=== PATIENT | female | born 1960 | race Caucasian/White ===

== ENCOUNTER 2021-12-31 00:36 | Day surgery (SDC) | payer OTHER, SELFPAY ==
[2021-11-22 13:01] VITALS: BMI 21.0
--- NOTE | 2021-12-18 13:57 | PC.NURSE ---
Pt denies any changes in medical history or medications since last pre assessment phone call. no new questions. new date and time of procedure verified with pt.
--- NOTE | 2021-12-30 17:44 | PM.HPGS ---
History of Present Illness History of Present Illness Consent: Risks, benefits, and alternatives have been discussed and questions answered. Patient agrees to proceed with procedure. Chief complaint: family hx of colon ca Narrative: Luz Marina Fields is a 61 year old female referred for colon cancer screening. Her father had precancerous polyps. Her paternal aunt and grandfather both had colon cancer Review of Systems Review of Systems: All systems reviewed & are unremarkable except as noted in HPI and below PMFSH Past Medical History Medical History Hyperlipidemia IBS (irritable bowel syndrome) Surgical History Surgical History History of hysterectomy Social History Social History Smoking status: Former smoker Alcohol intake: current Alcohol use details: 1-2 drinks per month Living arrangements: with family Spiritual care concerns: No Meds Home Medications and Allergies Home Medications Medication Instructions Recorded Confirmed Type omeprazole 40 mg capsule,delayed 40 mg PO DAILY #90 cap 06/29/21 11/22/21 Rx release eletriptan 40 mg tablet 40 mg PO ONCE PRN 08/21/21 11/22/21 History topiramate 25 mg tablet See Rx Instructions .ROUTE 08/21/21 11/22/21 History .COMPLEX tablet galcanezumab-gnlm 120 mg/mL 120 mg SUBCUT MONTHLY #1 ml 09/18/21 11/22/21 Rx subcutaneous pen injector cyclosporine [Restasis] 1 drp OPHTHALMIC (EYE) BID 11/22/21 11/22/21 History estradiol 1 mg PO DAILY 11/22/21 11/22/21 History fluticasone propionate [Flonase] 50 mcg INTRANASAL DAILY 11/22/21 11/22/21 History loperamide 1 mg PO DAILY 11/22/21 11/22/21 History phenylephrine HCl [Sudafed PE] 10 mg PO DAILY 11/22/21 11/22/21 History rosuvastatin 10 mg PO DAILY 11/22/21 11/22/21 History Allergies Allergy/AdvReac Type Severity Reaction Status Date / Time sulfamethizole Allergy Unknown Unknown Verified 12/31/21 09:17 sulfanilamide Allergy Unknown Unknown Verified 12/31/21 09:17 trimethoprim Allergy Unknown Unknown Verified 12/31/21 09:17 erythromycin base AdvReac Severe N/V Verified 12/31/21 09:17 sulfamethoxazole AdvReac Severe N/V Verified 12/31/21 09:17 Exam Const: General: alert Orientation/consciousness: patient oriented x3 Resp: Auscultation: clear to auscultation bilaterally Cardio: Rhythm: regular rhythm GI: GI Palp: Yes Soft to palpation and No Tenderness to palpation present (GI) Neuro: General: patient oriented x3 Assessment and Plan Assessment and plan (1) Colon cancer screening: Code(s): Z12.11 - Encounter for screening for malignant neoplasm of colon Status: Acute Assessment and Plan: Colonoscopy with possible biopsy or polypectomy or cautery or injection of substances.
[2021-12-31 09:19] VITALS: BP 115/76; PULSE 78; RESP 18; TEMP 36.8; O2SAT 98
--- NOTE | 2021-12-31 09:26 | P.PNAN_ITS ---
Anes - Initial Pre Proc Eval Procedure: Operation Date: 12/31/21 10:00 Proposed Procedures p Screening Colonoscopy - Aniceto Hunter MD Date/Time: 12/31/21 09:26 Surgeon: Aniceto Hunter MD Pre Op Diagnosis: family hx of colon ca Patient Data Age: 61 Gender: F Height: 1.6 m Weight: 54.8 kg Last Vital Signs Temp 36.8 C 12/31/21 09:19 Pulse 78 12/31/21 09:19 Resp 18 12/31/21 09:19 BP 115/76 12/31/21 09:19 Pulse Ox 98 12/31/21 09:19 Allergies Allergy/AdvReac Type Severity Reaction Status Date / Time sulfamethizole Allergy Unknown Unknown Verified 12/31/21 09:17 sulfanilamide Allergy Unknown Unknown Verified 12/31/21 09:17 trimethoprim Allergy Unknown Unknown Verified 12/31/21 09:17 erythromycin base AdvReac Severe N/V Verified 12/31/21 09:17 sulfamethoxazole AdvReac Severe N/V Verified 12/31/21 09:17 Home Medications Medication Instructions Recorded Confirmed Type omeprazole 40 mg capsule,delayed 40 mg PO DAILY #90 cap 06/29/21 11/22/21 Rx release eletriptan 40 mg tablet 40 mg PO ONCE PRN 08/21/21 11/22/21 History topiramate 25 mg tablet See Rx Instructions .ROUTE 08/21/21 11/22/21 History .COMPLEX tablet galcanezumab-gnlm 120 mg/mL 120 mg SUBCUT MONTHLY #1 ml 09/18/21 11/22/21 Rx subcutaneous pen injector cyclosporine [Restasis] 1 drp OPHTHALMIC (EYE) BID 11/22/21 11/22/21 History estradiol 1 mg PO DAILY 11/22/21 11/22/21 History fluticasone propionate [Flonase] 50 mcg INTRANASAL DAILY 11/22/21 11/22/21 History loperamide 1 mg PO DAILY 11/22/21 11/22/21 History phenylephrine HCl [Sudafed PE] 10 mg PO DAILY 11/22/21 11/22/21 History rosuvastatin 10 mg PO DAILY 11/22/21 11/22/21 History Patient hx anesthesia problems: none Family hx anesthesia problems: none Results Review: All pre-operative results and documents have been reviewed as part of the pre-operative evaluation. [facility] Past Medical History Medical History Hyperlipidemia IBS (irritable bowel syndrome) Surgical History Surgical History History of hysterectomy Social History Social History Smoking status: Former smoker Alcohol intake: current Alcohol use details: 1-2 drinks per month Living arrangements: with family Spiritual care concerns: No Anes - Eval Final PreProcedure Day of Procedure 12/31/21 09:26 Patient weight: normal Heart: regular rate and rhythm Lungs: clear to auscultation and normal air movement Airway: Mallampati scale class II Neurological: alert and oriented Last oral intake: >/= 8 hours ASA classification: II Emergent: no Anesthetic plan: proceed Anesthesia type and monitoring: general GIVS and standard monitoring Results Review: All pre-operative results and documents have been reviewed as part of the pre-operative evaluation. Informed Consent: The patient's anesthetic plan and its attendant risks and benefits were discussed with the patient/family/POA. Questions were solicited and answers provided to the satisfaction of the patient/family/POA.
[2021-12-31] MEDS: LACTATED RINGERS 1,000 ML 150 ML IV CONT (09:27)
[2021-12-31 10:15] VITALS: BP 91/67; PULSE 87; RESP 18; O2SAT 98
[2021-12-31 10:25] VITALS: BP 118/80; PULSE 69; RESP 18; O2SAT 91
[2021-12-31 10:34] VITALS: BP 108/72; PULSE 63; RESP 18; O2SAT 100
== END 2021-12-31 10:43 | disposition home or self-care (01) ==
PROVIDERS: PCP Internal Medicine; Visit Provider Internal Medicine Gastroenterology
PROC: 0DJD8ZZ Inspection of Lower Intestinal Tract, Via Natural or Artificial Opening Endoscopic (ICD-10-PCS; CPT 45378; principal; 2021-12-31 10:00)
DX: Z12.11 Encounter for screening for malignant neoplasm of colon (principal); K64.8 Other hemorrhoids; Z80.0 Family history of malignant neoplasm of digestive organs; K58.9 Irritable bowel syndrome, unspecified; E78.5 Hyperlipidemia, unspecified; Z87.891 Personal history of nicotine dependence
CPT/HCPCS: 45378; J2704; J7120

== ENCOUNTER 2022-08-01 07:44 | Inpatient (IN) | payer OTHER, SELFPAY ==
[2022-08-01] VITALS (12 sets, daily range): BP systolic 117–155; BP diastolic 71–98; PULSE 57–79; RESP 14–18; TEMP 36.7–36.8; O2SAT 97–100
--- NOTE | ~2022-08-01 | XR_ITS ---
EXAMINATION: XR sm bowel follow through DATE: 08/02/2022 12:29 INDICATION: Small bowel obstruction. TECHNIQUE: Oral contrast was administered, and a time course of radiographs of the abdomen was obtain ed. Fluoroscopy of the small bowel was not performed. Fluoroscopy exposure time was 0 minutes. The to carmella number of images was 2. COMPARISON: CT abdomen and pelvis 08/01/2022 FINDINGS: The nasogastric tube tip is in the stomach. There is no abnormal mass or stricture. There are no dila barber loops of bowel. Transit time from the stomach to proximal colon was approximately 1 hour. IMPRESSION: 1. Normal small bowel series. Reviewed, dictated and finalized at location A.
--- NOTE | ~2022-08-01 | XR_ITS ---
EXAMINATION: XR abdomen NG/feed tube insert DATE: 08/01/2022 13:06 INDICATION: Nasogastric tube placement. TECHNIQUE: An upright view of the abdomen was obtained. COMPARISON: CT abdomen and pelvis 08/01/2022 FINDINGS: The lower abdomen is excluded. The nasogastric tube tip is in the stomach. Breast implants are noted. IMPRESSION: 1. Nasogastric tube tip in the stomach. Reviewed, dictated and finalized at location A.
--- NOTE | ~2022-08-01 | US_ITS ---
EXAMINATION: US abdomen limited DATE: 08/01/2022 09:15 INDICATION: Right upper quadrant abdominal pain. TECHNIQUE: Multiple grayscale and Doppler ultrasound images of the abdomen were obtained. COMPARISON: None FINDINGS: The visualized portions of the head and body of the pancreas are normal. The liver is arnie l without focal lesion. There is normal flow in main portal vein. The gallbladder is normal in size. No gallstones or gallbladder wall thickening. There was no sonographic Leos sign. The common duct i s normal and measures 2 mm. IMPRESSION: 1. Normal right upper quadrant ultrasound. Reviewed, dictated and finalized at location A.
--- NOTE | ~2022-08-01 | XR_ITS ---
EXAMINATION: XR abdomen obstructive series DATE: 08/02/2022 08:25 INDICATION: Small bowel obstruction. TECHNIQUE: Upright and supine views of the abdomen were obtained. COMPARISON: CT abdomen and pelvis 08/01/2022 FINDINGS: There is a dilated loop of small bowel in the midabdomen. The colon is normal in caliber. T here is a large volume of stool in the colon. The nasogastric tube tip is in the stomach. No free int raperitoneal gas. Breast implants are noted. IMPRESSION: 1. Dilated loop of small bowel, consistent with adynamic ileus versus partial small bowel obstruction . Reviewed, dictated and finalized at location A. IMPRESSION: 1. Dilated loop of small bowel, consistent with adynamic ileus versus partial s mall bowel obstruction.
--- NOTE | ~2022-08-01 | CT_ITS ---
EXAMINATION: CT abdomen pelvis w con INDICATION: Upper abdominal pain TECHNIQUE: Computed tomographic images of the abdomen and pelvis were obtained after the administrati on of 100 cc of Omnipaque 350 intravenous contrast. The dose-length product (DLP) was 210.92 mGy-cm. Automated exposure control and iterative reconstruction technique were employed. COMPARISON: None available FINDINGS: Minimal dependent atelectasis is present in the lung bases. The heart size is normal. Bilat eral breast implants are noted. Cysts of the liver measure up to 7 mm in the left hepatic lobe. The s pleen, pancreas, gallbladder, and adrenal glands are normal. The kidneys are unremarkable. No patholo gically enlarged abdominal or pelvic lymph nodes are identified. There are multiple dilated loop of s mall bowel in the midabdomen with small bowel feces sign which continue to an approximately 12 cm seg ment of small bowel with mild circumferential wall thickening. The distal small bowel is decompressed . There is no free intraperitoneal gas. 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 There are bilateral L5 pars defects with grade 1 anterolisthesis of L5 on S1. IMPRESSION: 1. Multiple dilated loops of small bowel continuing to a segment of small bowel with circumferential wall thickening. Findings are consistent with partial small bowel obstruction, possibly due to strict ure from inflammatory bowel disease. Reviewed, dictated and finalized at location B. IMPRESSION: 1. Multiple dilated loops of small bowel continuing to a segment of small bowel with circumferential wall thickening. Findings are consistent with partial sma ll bowel obstruction, possibly due to stricture from inflammatory bowel disease .
[2022-08-01 08:20] LABS: Basophils Percent Auto 0.3 % (0.2-1.2); Eosinophils Percent Auto 0.3 % (0-4.4); Hematocrit 45.8 % (37.0-47.0); Hemoglobin 14.6 g/dL (12.0-15.0); Immature Granulocyte Absolute 0.06 K/mm3 (0.00-0.031); Lymphocytes Absolute Auto 0.59 K/mm3 (0.9-3.2); Lymphocytes Percent Auto 9.6 % (18.3-44.2); Mean Corpuscular HGB Conc 31.9 g/dl (32-36); Mean Corpuscular Hemoglobin 30.2 pg (26-34); Mean Corpuscular Volume 94.8 fl (80-100); Mean Platelet Volume 9.9 fl (7.4-10.4); Monocytes Absolute Auto 0.5 K/mm3 (0.1-0.6); Neutrophils Absolute Auto 4.9 K/mm3 (1.3-6.7); Neutrophils Percent Auto 80.8 % (45.5-73.1); Platelet Count Result 311 k/mm3 (150-375); Red Blood Count 4.83 M/mm3 (4.2-5.4); Red Cell Distribution Width 13.8 % (11.5-14.5); White Blood Count 6.1 K/mm3 (4.5-10.0)
[2022-08-01 08:27] LABS: Alanine Aminotransferase 25 U/L (6-35); Alkaline Phosphatase 48 U/L (38-126); Anion Gap 10 mmol/L (8-16); Aspartate Amino Transferase 29 U/L (14-36); Bilirubin,Total 0.5 mg/dL (0.2-1.3); Blood Urea Nitrogen 20 mg/dL (7-17); Calcium 10.3 mg/dL (8.4-10.2); Carbon Dioxide 29 mmol/L (22-30); Chloride 107 mmol/L (98-107); Estimated CRCL calculation 44 ml/min; Estimated Glomerular Filt Rate 57; Glucose 148 mg/dL (65-110); Lipase 31 U/L (23-300); Potassium 3.8 mmol/L (3.4-5.0); Sodium 146 mmol/L (137-145)
[2022-08-01 08:28] LABS: Add Urine Microscopic? YES; Amorphous Sediment Urine Few; Appearance Urine Cloudy (Clear); Bacteria Urine Trace /hpf; Bilirubin Urine Negative (Negative); Blood Urine Negative (Negative); Color Urine Yellow (Yellow); Glucose Urine UA Negative (Negative); Ketones Urine Negative (Negative); Leukocyte Esterase Ur Negative LEU/UL (Negative); Mucus Urine Moderate /lpf; Nitrate Urine Negative (Negative); Protein Urine 1+ mg/dL (Negative); Specific Grav Ur 1.021 (1.001-1.035); Squamous Epithelial Cell Urine Many /hpf (Few); WBC Urine 0-3 /hpf
--- NOTE | 2022-08-01 08:30 | ED.GENADULT ---
HPI - General Adult General Chief complaint: Abdominal Pain Stated complaint: sick to my stomach Time Seen by Provider: 08/01/22 07:48 History of Present Illness HPI narrative: 61-year-old female presenting to the emergency department for evaluation of right upper quadrant pain. Patient states does have a history of gastric reflux. Patient denies any prior history of gallbladder disease. Patient states after eating dinner last night she has had persistent right upper quadrant pain. Patient also does report increased acid reflux. Patient has had follow-up with Dr. Hunter and had a recent colonoscopy. Patient had a EGD approximately 10 years ago. Related Data Home Medications Medication Instructions Recorded Confirmed eletriptan 40 mg tablet (Relpax) 40 mg PO ONCE PRN Migraine Headache 08/21/21 08/01/22 cyclosporine 0.05 % eye drops in a 1 drp ophthalmic (eye) BID 11/22/21 08/01/22 dropperette (Restasis) estradiol 1 mg tablet 1 mg PO DAILY 11/22/21 08/01/22 fluticasone propionate 50 50 mcg intranasal DAILY 11/22/21 08/01/22 mcg/actuation nasal spray,suspension loperamide 1 mg PO DAILY 11/22/21 08/01/22 phenylephrine HCl 10 mg tablet 10 mg PO DAILY 11/22/21 08/01/22 (Sudafed PE) rosuvastatin 10 mg tablet 10 mg PO DAILY 11/22/21 08/01/22 Allergies Allergy/AdvReac Type Severity Reaction Status Date / Time sulfamethizole Allergy Unknown Unknown Verified 08/01/22 13:34 sulfanilamide Allergy Unknown Unknown Verified 08/01/22 13:34 trimethoprim Allergy Unknown Unknown Verified 08/01/22 13:34 erythromycin base AdvReac Severe N/V Verified 08/01/22 13:34 sulfamethoxazole AdvReac Severe N/V Verified 08/01/22 13:34 Review of Systems Review of Systems: CONSTITUTIONAL: Denies fever, chills, or sweats. EYES: Denies visual changes, redness, or discharge. ENT: Denies rhinorrhea, congestion, sore throat, or otalgia. CARDIOVASCULAR: Denies chest pain, palpitations, or edema. RESPIRATORY: Denies cough or dyspnea. GASTROINTESTINAL: See HPI GENITOURINARY: Denies dysuria or hematuria. SKIN: Denies rash or itching. MUSCULOSKELETAL: Denies back pain, joint pain, or myalgia. NEUROLOGIC: Denies headache, numbness, or weakness. [facility] Past Medical History Medical History (Updated 08/01/22 @ 14:33 by Christina Salas NP) Acute migraine Chronic GERD Dry eye syndrome Ganglion cyst Hyperlipidemia Hyperlipidemia IBS (irritable bowel syndrome) IBS (irritable bowel syndrome) mixed Jaw fracture Jaw was wired shut when she was younger. Surgical History Surgical History H/O hand surgery tendon transfer H/O sinus surgery History of cataract extraction History of hysterectomy Family History Family History (Updated 08/01/22 @ 14:42 by Christina Salas NP) Father Parkinsons disease Mother Heart disease Takotsubo cardiomyopathy Social History Social History (Updated 08/01/22 @ 14:39 by Christina Salas NP) Social History: The patient is and lives with her who is the durable power agriscience instructor for healthcare. 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 The patient is lifelong nonsmoker does not use any alcohol marijuana or illicit drugs. Code status full code Smoking status: Never smoker Alcohol intake: never Alcohol use details: 1-2 drinks per month Substance use: current Substance use type: does not use Spiritual care concerns: No Exam Narrative: APPEARANCE: Well appearing, no pain, no distress, well-nourished. HEAD: normocephalic, atraumatic. EYES: PERRLA/EOMI, conjunctivae clear. NOSE: Normal no drainage NECK: Supple. No adenopathy, no masses. RESPIRATORY: Airway patent, respirations nonlabored. Clear to auscultation bilaterally, no rales, rhonchi, wheezing. CARDIOVASCULAR: Regular rate and rhythm without murmurs rubs or gallops. ABDOMINAL: Soft normal bowel sounds, diffuse tenderness to palpation MUSCULOSKELETAL:
[2022-08-01] MEDS: ONDANSETRON INJ 4 MG/2 ML VIAL IV PUSH (08:45)
[2022-08-01] MEDS: PANTOPRAZOLE SODIUM IV 40 MG VIAL IV PUSH (09:04)
[2022-08-01] MEDS: BELLADONNA ALK/PHENOB ELIX 10 ML, MAG HYDROX/ALUMINUM HYD/SIMETH 30 ML, LIDOCAINE HCL 2... PO (09:07)
[2022-08-01] MEDS: SODIUM CHLORIDE 0.9% IV 1,000 ML 999 ML IV CONT (09:07)
--- NOTE | 2022-08-01 12:02 | PM.CNGS ---
Assessment and Plan Assessment and plan (1) SBO (small bowel obstruction): Code(s): K56.609 - Unspecified intestinal obstruction, unspecified as to partial versus complete obstruction Status: Acute Assessment and Plan: inflammatory stricture, will place NG, ask GI to see, cont serial exams, labs History of Present Illness Consult details Consult date: 08/01/22 Reason for consult: abdominal pain Requesting physician: Fuentes Galicia DO Narrative: The patient is a 61-year-old female presenting to the emergency department complaining severe upper abdominal pain over the day or so. The patient reports the pain started acutely after dinner and has progressively worsened. She reports the pain is crampy and sharp. The patient reports associated nausea and vomiting. The patient denies previous episodes. Workup, including imaging, is significant for small bowel obstruction secondary to inflammatory stricture. Review of Systems Constitutional: Constitutional: Reports as per HPI, Denies anorexia, Denies chills, Denies fatigue, Denies fever(s), Denies lethargy, Denies malaise, Denies poor appetite, Denies weakness, Denies weight gain and Denies weight loss Eyes: Eyes: Reports no additional eye complaints ENT: Reports system reviewed and no additional complaints, except as documented Cardiovascular: Cardiovascular: Reports no additional cardiovascular complaints Respiratory: Respiratory: Reports no additional respiratory complaints Gastrointestinal: Gastrointestinal: Reports as per HPI, Reports abdominal pain, Reports bloating, Reports GI cramping, Reports early satiety, Reports heartburn, Denies loose stools, Reports nausea and Reports vomiting Genitourinary: Genitourinary: Reports no additional female genitourinary complaints Musculoskeletal: Musculoskeletal: Reports no additional musculoskeletal complaints Integumentary/Breasts: Skin/Breast: Reports system reviewed and no additional complaints, except as docu Psychiatric: Psychiatric: Reports no additional psychiatric complaints Endocrine: Endocrine: Reports no additional endocrine complaints Hematologic/Lymphatic: Hematologic/Lymphatic: Reports no additional hematologic/lymphatic complaints Allergic/Immunologic: Allergic/Immunologic: Reports no additional allergic/immunologic complaints PMFSH Past Medical History Medical History Hyperlipidemia IBS (irritable bowel syndrome) Surgical History Surgical History History of hysterectomy Social History Social History Smoking status: Former smoker Alcohol intake: current Alcohol use details: 1-2 drinks per month Spiritual care concerns: No Meds Home Medications and Allergies Home Medications Medication Instructions Recorded Confirmed Type omeprazole 40 mg capsule,delayed 40 mg PO DAILY #90 caps 06/29/21 11/22/21 Rx release eletriptan 40 mg tablet (Relpax) 40 mg PO ONCE PRN Migraine Headache 08/21/21 11/22/21 History cyclosporine 0.05 % eye drops in a 1 drp ophthalmic (eye) BID 11/22/21 11/22/21 History dropperette (Restasis) estradiol 1 mg tablet 1 mg PO DAILY 11/22/21 11/22/21 History fluticasone propionate 50 50 mcg intranasal DAILY 11/22/21 11/22/21 History mcg/actuation nasal spray,suspension loperamide 1 mg PO DAILY 11/22/21 11/22/21 History phenylephrine HCl 10 mg tablet 10 mg PO DAILY 11/22/21 11/22/21 History (Sudafed PE) rosuvastatin 10 mg tablet 10 mg PO DAILY 11/22/21 11/22/21 History galcanezumab-gnlm 120 mg/mL 120 mg subcut MONTHLY #1 mL 02/22/22 Rx subcutaneous pen injector (Emgality Pen) topiramate 25 mg tablet See Rx Instructions .Route 06/14/22 Rx .COMPLEX #360 tabs Allergies Allergy/AdvReac Type Severity Reaction Status Date / Time sulfamethizole Allergy Unknown Unknown Verifi
--- NOTE | 2022-08-01 12:20 | WPDGICN ---
Assessment and Plan Assessment and plan (1) SBO (small bowel obstruction): Code(s): K56.609 - Unspecified intestinal obstruction, unspecified as to partial versus complete obstruction Status: Acute Assessment and Plan: her symptoms are compatible with CT scan showing narrowing of the small bowel. The etiology is unclear. Adhesions are unlikely. The picture would be consistent with inflammatory bowel disease but clinically she has had no symptoms prior to last night and we would expect to see narrowing of the terminal ileum. Infectious etiology is a possibility as well. I doubt ischemic changes. I discussed this with her her and explained that she will 1st be treated with nasogastric suction. Then perhaps small-bowel series. Surgery has been consulted. I told her it that often decompression with nasogastric suction resolves small-bowel obstruction and that surgery may not be necessary. (2) Nausea and vomiting: Code(s): R11.2 - Nausea with vomiting, unspecified Status: Acute Assessment and Plan: This began after the abdominal pain and is consistent with small-bowel obstruction. Prior to this she had had no problems except for occasional heartburn (3) Abnormal CT scan, gastrointestinal tract: Code(s): R93.3 - Abnormal findings on diagnostic imaging of other parts of digestive tract Status: Acute Assessment and Plan: there is definitely a segment of ileum that is narrowed, several cm long. Etiology is unclear. I will obtain serology for inflammatory bowel disease. GI Consult Note Consult date/time: 08/01/22 12:20 HPI: Luz Marina Fields is a 61 year old female with a history of migraine headaches and irritable bowel syndrome who presents emergency room with severe acute abdominal pain with vomiting. She states that she and her had a [employer] burger last night. Few hours later she began to have pain which seemed to be primarily in the right upper quadrant at 1st but then became more diffuse. She be can vomiting closer to midnight bringing up mostly liquid but some pink matter which was the Pepto-Bismol and Tums that she had taken earlier to try to alleviate her symptoms. She did not have fever but recalls being chilled the last 2 days. 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 she has not been traveling recently. There has been no change in her bowel habits. Last bowel movement was the night before last and was unremarkable. She had a colonoscopy within the past year which was negative for any inflammatory bowel disease. She has had no weight loss. Her only abdominal surgery is a vaginal hysterectomy. CT scan of the abdomen shows an area of thickening of the small bowel suggestive of inflammatory bowel disease with proximal dilatation. This is not in the terminal ileum, in fact the distal ileum is decompressed. Review of Systems Review of Systems: All systems reviewed & are unremarkable except as noted in HPI and below PMFSH Past Medical History Medical History (Updated 08/01/22 @ 12:40 by Christina Salas NP) Acute migraine Chronic GERD Ganglion cyst Hyperlipidemia Hyperlipidemia IBS (irritable bowel syndrome) IBS (irritable bowel syndrome) mixed Jaw fracture Surgical History Surgical History (Updated 08/01/22 @ 12:41 by Christina Salas NP) H/O hand surgery tendon transfer H/O sinus surgery History of cataract extraction History of hysterectomy Social History Social History (Updated 08/01/22 @ 12:40 by Christina Salas NP) Social History: furniture assembler and installer Smoking status: Former smoker Alcohol intake: current Alcohol use details: 1-2 drinks per month Spiritual care concerns: No Meds Home Medications and Allergies Home Medications Medication Instructions Recorded Confirmed Type omeprazole 40 mg capsule,delayed 40 mg PO DAILY #90
--- NOTE | 2022-08-01 12:35 | PM.IMHP ---
H&P: HPI History of Present Illness Date/Time: 08/01/22 12:35 Chief Complaint: Abdominal pain Narrative: This is a 61-year-old female patient who has IBS mixed. The patient stated that she started having right epigastric pain last night. She does have a history of GERD. The patient stated that she has not had a bowel movement in 2 days but felt that this was normal for her. She did not try to take anything to resolve the issue. The patient stated that after eating dinner last night she had this right upper quadrant pain and she thought that it was due to something she ate. She ate a sonic burger and since his was greasy she thought that maybe it irritated her acid reflux. Her urine appears to be contaminated but no UTI. Abdominal ultrasound was performed normal right upper quadrant ultrasound. CT of the abdomen shows multiple dilated loops of small bowel continuing to a segment of small bowel with circumferential wall thickening. Findings are consistent with partial small-bowel obstruction, possibly due to stricture from inflammatory bowel disease. Dr. Hunter has been consulted and has seen the patient. Surgery has also been consulted. The patient has an NG tube that is placed now and is in the stomach. She was given IV Zofran, IV fluids, Protonix and a GI cocktail prior to her NG tube. The patient was initially admitted to observation but changed to inpatient status on the date of service of 08/01/2022. Review of Systems Review of Systems: See HPI All systems reviewed & are unremarkable except as noted in HPI and below Constitutional: Constitutional: Reports as per HPI and Reports no additional constitutional complaints Eyes: Eyes: Reports as per HPI and Reports no additional eye complaints ENT: Reports system reviewed and no additional complaints, except as documented and Reports Normal hearing present Cardiovascular: Cardiovascular: Reports no additional cardiovascular complaints Respiratory: Respiratory: Reports no additional respiratory complaints and Reports no additional respiratory complaints Gastrointestinal: Gastrointestinal: Reports as per HPI and Reports no additional gastrointestinal complaints Musculoskeletal: Musculoskeletal: Reports no additional musculoskeletal complaints Integumentary/Breasts: Skin/Breast: Reports system reviewed and no additional complaints, except as docu and Reports as per HPI Neurologic: Reports system reviewed and no additional complaints, except as documented, Reports as per HPI and Reports Normal hearing present Psychiatric: Psychiatric: Reports no additional psychiatric complaints and Reports as per HPI Endocrine: Endocrine: Reports no additional endocrine complaints Hematologic/Lymphatic: Hematologic/Lymphatic: Reports no additional hematologic/lymphatic complaints Allergic/Immunologic: Allergic/Immunologic: Reports no additional allergic/immunologic complaints [facility] Past Medical History Medical History (Updated 08/01/22 @ 14:33 by Christina Salas NP) Acute migraine Chronic GERD Dry eye syndrome Ganglion cyst Hyperlipidemia Hyperlipidemia IBS (irritable bowel syndrome) IBS (irritable bowel syndrome) mixed Jaw fracture Jaw was wired shut when she was younger. Surgical History Surgical History H/O hand surgery tendon transfer H/O sinus surgery History of cataract extraction History of hysterectomy Family History Family History (Updated 08/01/22 @ 14:42 by Christina Salas NP) Father Parkinsons disease Mother Heart disease Takotsubo cardiomyopathy Social History Social History (Updated 08/01/22 @ 14:39 by Christina Salas NP) Social History: The patient is and lives with her who is the durable power trade mark attorney for healthcare. 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 The patient is lifelong nonsmoker does not use any alcohol marijuana or illicit drugs. Code status
--- NOTE | 2022-08-01 13:28 | ADMGEN ---
This patient, Luz Marina Fields, was admitted to [facility] Surg Room 329-01. Patient/family oriented to hospital policies and general routines including ID bracelet, bed and alarms, visiting hours, pain management, procedures, bathroom and other care routines, personal items, smoking policy, room service/diet, and visiting hours. Information on how to activate the Rapid Response Team has been discussed. Patient/Family are encouraged to report perceived risks to care and to ask questions if they do not understand what they are told or what they should do.
[2022-08-01] MEDS: SODIUM CHLORIDE 0.9% IV 1,000 ML 125 ML IV CONT ×2 (13:33→19:48)
[2022-08-01] MEDS: MORPHINE SULFATE (*CRX) 2 MG/ML INJ IV PUSH ×2 (16:01→21:52)
[2022-08-01] MEDS: FAMOTIDINE 20 MG/2 ML VIAL IV PUSH (19:48)
[2022-08-01] MEDS: cycloSPORINE 0.4 ML OPHTH SOLUTION 1 DROP EACH EYE (19:48)
[2022-08-01] MEDS: KETOROLAC 15 MG/ML VIAL (*BKC) IV PUSH (20:54)
[2022-08-02] MEDS: SODIUM CHLORIDE 0.9% IV 1,000 ML 125 ML IV CONT ×2 (04:36→16:01)
[2022-08-02 05:43] LABS: Basophils Percent Auto 0.6 % (0.2-1.2); Eosinophils Absolute Auto 0.1 K/mm3 (0-0.3); Eosinophils Percent Auto 1.8 % (0-4.4); Hematocrit 38.6 % (37.0-47.0); Hemoglobin 12.1 g/dL (12.0-15.0); Immature Granulocyte Absolute 0.01 K/mm3 (0.00-0.031); Immature Granulocyte Percent A 0.2 % (0-0.5); Lymphocytes Absolute Auto 1.58 K/mm3 (0.9-3.2); Lymphocytes Percent Auto 31.2 % (18.3-44.2); Mean Corpuscular HGB Conc 31.3 g/dl (32-36); Mean Corpuscular Hemoglobin 30.5 pg (26-34); Mean Corpuscular Volume 97.2 fl (80-100); Mean Platelet Volume 9.8 fl (7.4-10.4); Monocytes Absolute Auto 0.6 K/mm3 (0.1-0.6); Monocytes Percent Auto 12.6 % (2.6-8.5); Neutrophils Absolute Auto 2.7 K/mm3 (1.3-6.7); Neutrophils Percent Auto 53.6 % (45.5-73.1); Platelet Count Result 237 k/mm3 (150-375); Red Blood Count 3.97 M/mm3 (4.2-5.4); Red Cell Distribution Width 14.1 % (11.5-14.5); White Blood Count 5.1 K/mm3 (4.5-10.0)
[2022-08-02 05:53] LABS: Lactic Acid Reflex 0.7 mmol/L (0.7-2.0)
[2022-08-02 05:55] LABS: Alanine Aminotransferase 19 U/L (6-35); Albumin Level 3.5 g/dL (3.5-5.1); Alkaline Phosphatase 37 U/L (38-126); Anion Gap 4 mmol/L (8-16); Aspartate Amino Transferase 21 U/L (14-36); Bilirubin,Total 0.4 mg/dL (0.2-1.3); Blood Urea Nitrogen 20 mg/dL (7-17); Calcium 8.1 mg/dL (8.4-10.2); Carbon Dioxide 26 mmol/L (22-30); Chloride 113 mmol/L (98-107); Estimated CRCL calculation 44 ml/min; Estimated Glomerular Filt Rate 57; Glucose 96 mg/dL (65-110); Lactate Dehydrogenase 192 U/L (120-246); Lipase 59 U/L (23-300); Magnesium 2.3 mg/dL (1.6-2.3); Potassium 3.8 mmol/L (3.4-5.0); Sodium 143 mmol/L (137-145)
[2022-08-02 06:00] VITALS: BP 127/75; PULSE 55; RESP 18; TEMP 36.4; O2SAT 97
--- NOTE | 2022-08-02 07:23 | WPDGIPROGNO ---
Progress Note: A&P Assessment and Plan (1) SBO (small bowel obstruction): Code(s): K56.609 - Unspecified intestinal obstruction, unspecified as to partial versus complete obstruction Status: Acute Assessment and Plan: her abdomen is flat. Pain has subsided. NG tube is draining clear to slightly yellow liquid. She is scheduled for abdominal x-ray this morning. We will probable also perform small-bowel series with water-soluble contrast via NG tube. (2) Nausea and vomiting: Code(s): R11.2 - Nausea with vomiting, unspecified Status: Acute Assessment and Plan: No emesis since admission. (3) Abnormal CT scan, gastrointestinal tract: Code(s): R93.3 - Abnormal findings on diagnostic imaging of other parts of digestive tract Status: Acute Assessment and Plan: The etiology of her small bowel the obstruction is unknown. The location is atypical for inflammatory bowel disease. (4) Acute migraine: Code(s): G43.909 - Migraine, unspecified, not intractable, without status migrainosus Status: Acute Assessment and Plan: She did not tolerate sumatriptan and it was not effective. She did get relief of her headache with morphine. She also has received acetaminophen. Subjective Date/time seen: 08/02/22 07:23 Since being placed in the room and having NG tube inserted, her right upper quadrant and mid abdominal pain has subsided. Her main issue during the night was her migraine headaches. I metrics was tried but did not help and has caused a reaction. She did respond to morphine. She has had no bowel movements. She remains afebrile. I explained that we will get a plain film of the abdomen this morning and probably, depending on those results, a small-bowel series today. The hope is that we can remove her NG tube sometime today. There has been no vomiting. She denies fever chills Review of Systems Review of Systems: All systems reviewed & are unremarkable except as noted in HPI and below Exam Const: General: alert Orientation/consciousness: patient oriented x3 HENMT: General nose exam: Other nasal findings present ( NG tube in right nostril) Resp: Auscultation: clear to auscultation bilaterally Cardio: Rhythm: regular rhythm GI: GI Palp: Yes Soft to palpation, Yes Tenderness to palpation present (GI) ( mildly tender in mid abdomen with palpation) and No Guarding due to palpation present (GI) Auscultation: normal bowel sounds Neuro: General: patient oriented x3 Objective Data Vital Signs Vital Signs: Vital Signs - 24 hr 08/01/22 07:49 08/01/22 08:01 08/01/22 09:11 Temperature 36.7 C Pulse Rate 74 79 63 Respiratory Rate 16 14 16 Blood Pressure 146/98 H 128/94 H 126/75 Pulse Oximetry 100 98 100 Oxygen Delivery Room Air 08/01/22 10:26 08/01/22 11:01 08/01/22 12:01 Temperature Pulse Rate 67 58 L 68 Respiratory Rate 16 14 17 Blood Pressure 139/83 134/78 138/91 H Pulse Oximetry 100 99 99 Oxygen Delivery 08/01/22 12:30 08/01/22 12:45 08/01/22 13:00 Temperature Pulse Rate 62 66 75 Respiratory Rate 15 14 14 Blood Pressure Pulse Oximetry 99 100 98 Oxygen Delivery 08/01/22 13:01 08/01/22 14:00 08/01/22 21:49 Temperature 36.8 C 36.7 C Pulse Rate 71 68 57 L Respiratory Rate 14 18 18 Blood Pressure 155/85 H 131/80 117/71 Pulse Oximetry 97 98 98 Oxygen Delivery 08/01/22 20:00 08/02/22 06:00 Temperature 36.4 C L Pulse Rate 55 L Respiratory Rate 18 Blood Pressure 127/75 Pulse Oximetry 97 Oxygen Delivery Room Air Intake/Output Intake/Output: Intake & Output 07/30/22 07/31/22 08/01/22 08/02/22 23:59 23:59 23:59 23:59 Intake Total 2200 1240 Output Total 200 300 Balance 1999 940 Meds/Results Medications: Active Medications Generic Name Dose Route Start Last Admin Trade Name Freq PRN Reason Stop Dose Admin Cyclosporine 1 drop 08/01/22 21:00 08/01/22 19:48 Cyclos
[2022-08-02] MEDS: FAMOTIDINE 20 MG/2 ML VIAL IV PUSH ×2 (08:59→20:11)
[2022-08-02] MEDS: FLUTICASONE PROPIONATE 0.05% NA SPR 16 GM BTL (*BKC) 1 SPRAY NASAL (08:59)
[2022-08-02] MEDS: cycloSPORINE 0.4 ML OPHTH SOLUTION 1 DROP EACH EYE ×2 (08:59→20:11)
--- NOTE | 2022-08-02 10:47 | PM.PNGS ---
Progress Note: A&P Assessment and Plan (1) SBO (small bowel obstruction): Code(s): K56.609 - Unspecified intestinal obstruction, unspecified as to partial versus complete obstruction Status: Acute Assessment and Plan: inflammatory stricture on CT, ? etiology, exam benign today, will get SBS for further eval, cont NG decompression for now Subjective Subjective Date/Time Seen: 08/02/22 10:47 feels much better after NG decompression, no pain, no N/V, +flatus Review of Systems Review of Systems: All systems reviewed & are unremarkable except as noted in HPI and below Exam Const: General: cooperative, comfortable and no acute distress Resp: Auscultation: clear to auscultation bilaterally Cardio: Rate: regular rate Rhythm: regular rhythm GI: Inspection: normal to inspection and non-distended GI Palp: No abdominal tenderness, Yes Soft to palpation, No Tenderness to palpation present (GI), No Guarding due to palpation present (GI) and No Rigid due to palpation Objective Data Vital Signs Vital Signs: Vital Signs - 24 hr 08/01/22 11:01 08/01/22 12:01 08/01/22 12:30 Temperature Pulse Rate 58 L 68 62 Respiratory Rate 14 17 15 Blood Pressure 134/78 138/91 H Pulse Oximetry 99 99 99 Oxygen Delivery 08/01/22 12:45 08/01/22 13:00 08/01/22 13:01 Temperature Pulse Rate 66 75 71 Respiratory Rate 14 14 14 Blood Pressure 155/85 H Pulse Oximetry 100 98 97 Oxygen Delivery 08/01/22 14:00 08/01/22 21:49 08/01/22 20:00 Temperature 36.8 C 36.7 C Pulse Rate 68 57 L Respiratory Rate 18 18 Blood Pressure 131/80 117/71 Pulse Oximetry 98 98 Oxygen Delivery Room Air 08/02/22 06:00 Temperature 36.4 C L Pulse Rate 55 L Respiratory Rate 18 Blood Pressure 127/75 Pulse Oximetry 97 Oxygen Delivery Intake/Output Intake/Output: Intake & Output 07/30/22 07/31/22 08/01/22 08/02/22 23:59 23:59 23:59 23:59 Intake Total 2200 1240 Output Total 200 300 Balance 1999 940 Meds/Results Medications: Active Medications Generic Name Dose Route Start Last Admin Trade Name Freq PRN Reason Stop Dose Admin Cyclosporine 1 drop 08/01/22 21:00 08/02/22 08:59 Cyclosporine 0.4 Ml Ophth Solution EACH EYE 1 drop Q12HR SHANAE Administration Famotidine 20 mg 08/01/22 21:00 08/02/22 08:59 Famotidine 20 Mg/2 Ml Vial IV PUSH 20 mg Q12HR SHANAE Administration Fluticasone Propionate 1 spray 08/02/22 09:00 08/02/22 08:59 Fluticasone Propionate 0.05% Na Spr 16 Gm Btl (*Bkc) NASAL 1 spray DAILY SHANAE Administration Sodium Chloride 1,000 mls @ 125 mls/hr 08/01/22 12:20 08/02/22 04:36 Normal Saline Iv IV CONT 125 mls/hr .Q8H SHANAE Administration Acetaminophen 1,000 mg in 100 mls @ 400 mls/hr 08/01/22 13:49 08/02/22 09:11 Ofirmev 1,000 Mg Ivpb IVPB 08/02/22 13:48 400 mls/hr Q6H PRN Administration Pain Rated 4-6 Ondansetron HCl 4 mg 08/01/22 12:17 Ondansetron Inj 4 Mg/2 Ml Vial IV PUSH Q4H PRN Nausea Phenol 1 spray 08/01/22 12:55 Phenol/Sod Pheno [place] Lizama (*Bkc) MUCOUS MEM PRN PRN Sore Throat Radiology Results: ITS Impressions Abdomen Ultrasound 08/01/22 09:16 IMPRESSION: 1. Normal right upper quadrant ultrasound. Abdomen/Pelvis CT 08/01/22 10:16 IMPRESSION: 1. Multiple dilated loops of small bowel continuing to a segment of small bowel with circumferential wall thickening. Findings are consistent with partial small bowel obstruction, possibly due to stricture from inflammatory bowel disease. Abdomen X-Ray 08/02/22 08:28 IMPRESSION: 1. Dilated loop of small bowel, consistent with adynamic ileus versus partial small bowel obstruction. Labs Labs: Laboratory Results - last 24 hr 08/02/22 08/02/22 08/02/22 05:26 05:26 05:26 WBC 5.1 RBC 3.97 L Hgb 12.1 Hct 38.6 MCV 97.2 MCH 30.5 MCHC 31.3 L RDW 14.1 Plt Count 237 MPV 9.8 Immat
[2022-08-02] MEDS: KETOROLAC 30 MG/ML VIAL (*BKC) IV PUSH (11:11)
[2022-08-02] MEDS: METOCLOPRAMIDE HCL INJ 10 MG/2 ML VIAL IV PUSH (11:13)
[2022-08-02] MEDS: diphenhydrAMINE HCl INJ 50 MG/ML VIAL IV PUSH (11:13)
[2022-08-02] MEDS: SODIUM CHLORIDE 0.9% IV 1,000 ML 250 ML IV CONT (11:14)
[2022-08-02 14:00] VITALS: BP 131/68; PULSE 68; RESP 20; TEMP 36.4; O2SAT 97
--- NOTE | 2022-08-02 15:21 | PM.IMPN ---
Progress Note: A&P Assessment and Plan (1) SBO (small bowel obstruction): Code(s): K56.609 - Unspecified intestinal obstruction, unspecified as to partial versus complete obstruction Status: Acute (2) Acute migraine: Code(s): G43.909 - Migraine, unspecified, not intractable, without status migrainosus Status: Acute (3) Hyperlipidemia: Code(s): E78.5 - Hyperlipidemia, unspecified Status: Acute (4) IBS (irritable bowel syndrome): Code(s): K58.9 - Irritable bowel syndrome without diarrhea Status: Acute (5) Chronic GERD: Code(s): K21.9 - Gastro-esophageal reflux disease without esophagitis Status: Acute Plan 08/01/22 -the patient has NG tube in place should -she is NPO. -analgesics as needed -surgery has been consulted -GI has been consulted. -she has a history of IBS mixed -obstructive series in the a.m.. -IV Tylenol. -may consider Imitrex. -patient gets monthly injection -patient is NPO and her rosuvastatin is on hold at this time. -GI has been consulted -IV Pepcid 08/02/22 still NGT and NPO gi cocktail passing stool w/o daily imodium and w SBS no pain all questions answered GI and Surg following Subjective Date/time seen: 08/02/22 15:21 having BMs currently have SBS test, she has known IBS and takes Imodium daily complains of MILLAN improved w Migraine cocktail Review of Systems Review of Systems: All systems reviewed & are unremarkable except as noted in HPI and below Exam Narrative: GEN: NAD, AAOx3, cooperative HEENT: NCAT, MMM, EOMI Neck: no JVD Heart: S1S2 RRR Lungs: CTA B/l Abd: soft, NT, ND, bowel sounds normoactive Ext: moves all, no cyanosis, no clubbing, no edema Neuro: normal cognition, CN intact, no focal deficits Psych: mood and affect congruent Objective Data Vital Signs Vital Signs: Vital Signs - 24 hr 08/01/22 21:49 08/01/22 20:00 08/02/22 06:00 Temperature 98.1 F 97.5 F L Pulse Rate 57 L 55 L Respiratory Rate 18 18 Blood Pressure 117/71 127/75 Pulse Oximetry 98 97 Oxygen Delivery Room Air 08/02/22 08:59 08/02/22 14:00 Temperature 97.6 F Pulse Rate 68 Respiratory Rate 20 Blood Pressure 131/68 Pulse Oximetry 97 Oxygen Delivery Room Air Intake/Output Intake/Output: Intake & Output 07/30/22 07/31/22 08/01/22 08/02/22 23:59 23:59 23:59 23:59 Intake Total 2200 1340 Output Total 200 300 Balance 2000 1040 Meds/Results Medications: Active Medications Generic Name Dose Route Start Last Admin Trade Name Freq PRN Reason Stop Dose Admin Cyclosporine 1 drop 08/01/22 21:00 08/02/22 08:59 Cyclosporine 0.4 Ml Ophth Solution EACH EYE 1 drop Q12HR SHANAE Administration Diphenhydramine HCl 50 mg 08/02/22 10:50 08/02/22 11:13 Diphenhydramine Hcl Inj 50 Mg/Ml Vial IV PUSH 50 mg Q4H PRN Administration Itching Famotidine 20 mg 08/01/22 21:00 08/02/22 08:59 Famotidine 20 Mg/2 Ml Vial IV PUSH 20 mg Q12HR SHANAE Administration Fluticasone Propionate 1 spray 08/02/22 09:00 08/02/22 08:59 Fluticasone Propionate 0.05% Na Spr 16 Gm Btl (*Bkc) NASAL 1 spray DAILY SHANAE Administration Sodium Chloride 1,000 mls @ 125 mls/hr 08/01/22 12:20 08/02/22 04:36 Normal Saline Iv IV CONT 125 mls/hr .Q8H SHANAE Administration Sodium Chloride 1,000 mls @ 250 mls/hr 08/02/22 10:50 08/02/22 11:14 Normal Saline Iv IV CONT 250 mls/hr .Q4H SHANAE Administration Ondansetron HCl 4 mg 08/01/22 12:17 Ondansetron Inj 4 Mg/2 Ml Vial IV PUSH Q4H PRN Nausea Phenol 1 spray 08/01/22 12:55 Phenol/Sod Pheno [place] Lizama (*Bkc) MUCOUS MEM PRN PRN Sore Throat Radiology Results: ITS Impressions Abdomen Ultrasound 08/01/22 09:16 IMPRESSION: 1. Normal right upper quadrant ultrasound. Abdomen/Pelvis CT 08/01/22 10:16 IMPRESSION: 1. Multiple dilated loops of small bowel continuing to a segment of small b
[2022-08-02 21:57] VITALS: BP 120/67; PULSE 58; RESP 16; TEMP 36.6; O2SAT 98
[2022-08-03] MEDS: SODIUM CHLORIDE 0.9% IV 1,000 ML 125 ML IV CONT ×3 (00:49→20:05)
[2022-08-03 05:55] VITALS: BP 116/72; PULSE 52; RESP 18; TEMP 35.8; O2SAT 99
[2022-08-03] MEDS: FAMOTIDINE 20 MG/2 ML VIAL IV PUSH ×2 (08:13→20:05)
[2022-08-03] MEDS: FLUTICASONE PROPIONATE 0.05% NA SPR 16 GM BTL (*BKC) 1 SPRAY NASAL (08:13)
[2022-08-03] MEDS: cycloSPORINE 0.4 ML OPHTH SOLUTION 1 DROP EACH EYE ×2 (08:14→20:05)
--- NOTE | 2022-08-03 09:32 | PM.IMPN ---
Progress Note: A&P Assessment and Plan (1) SBO (small bowel obstruction): Code(s): K56.609 - Unspecified intestinal obstruction, unspecified as to partial versus complete obstruction Status: Acute (2) Acute migraine: Code(s): G43.909 - Migraine, unspecified, not intractable, without status migrainosus Status: Acute (3) Hyperlipidemia: Code(s): E78.5 - Hyperlipidemia, unspecified Status: Acute (4) IBS (irritable bowel syndrome): Code(s): K58.9 - Irritable bowel syndrome without diarrhea Status: Acute (5) Chronic GERD: Code(s): K21.9 - Gastro-esophageal reflux disease without esophagitis Status: Acute Plan 08/01/22 -the patient has NG tube in place should -she is NPO. -analgesics as needed -surgery has been consulted -GI has been consulted. -she has a history of IBS mixed -obstructive series in the a.m.. -IV Tylenol. -may consider Imitrex. -patient gets monthly injection -patient is NPO and her rosuvastatin is on hold at this time. -GI has been consulted -IV Pepcid 08/02/22 still NGT and NPO gi cocktail passing stool w/o daily imodium and w SBS no pain all questions answered GI and Surg following 08/03/22 NGT out CLD advanced to GI soft cont current care anticipate clearance by consultants and dc home tomorrow Subjective Date/time seen: 08/03/22 09:32 SBO resolved and patient monitored throughout the day as diet advanced. Review of Systems Review of Systems: All systems reviewed & are unremarkable except as noted in HPI and below Exam Narrative: GEN: NAD, AAOx3, cooperative HEENT: NCAT, MMM, EOMI Neck: no JVD Lungs: no use of accessory muscles, symmetric chest rise Ext: moves all, no cyanosis, no clubbing, no edema Neuro: normal cognition, CN intact, no focal deficits Psych: mood and affect congruent Objective Data Vital Signs Vital Signs: Vital Signs - 24 hr 08/02/22 14:00 08/02/22 20:00 08/02/22 21:57 Temperature 97.6 F 97.9 F Pulse Rate 68 58 L Respiratory Rate 20 16 Blood Pressure 131/68 120/67 Pulse Oximetry 97 98 Oxygen Delivery Room Air 08/03/22 05:55 Temperature 96.5 F L Pulse Rate 52 L Respiratory Rate 18 Blood Pressure 116/72 Pulse Oximetry 99 Oxygen Delivery Intake/Output Intake/Output: Intake & Output 07/31/22 08/01/22 08/02/22 08/03/22 23:59 23:59 23:59 23:59 Intake Total 2200 3960 2600 Output Total 200 800 Balance 2000 3160 2600 Meds/Results Medications: Active Medications Generic Name Dose Route Start Last Admin Trade Name Freq PRN Reason Stop Dose Admin Cyclosporine 1 drop 08/01/22 21:00 08/03/22 08:14 Cyclosporine 0.4 Ml Ophth Solution EACH EYE 1 drop Q12HR SHANAE Administration Diphenhydramine HCl 50 mg 08/02/22 10:50 08/02/22 11:13 Diphenhydramine Hcl Inj 50 Mg/Ml Vial IV PUSH 50 mg Q4H PRN Administration Itching Famotidine 20 mg 08/01/22 21:00 08/03/22 08:13 Famotidine 20 Mg/2 Ml Vial IV PUSH 20 mg Q12HR SHANAE Administration Fluticasone Propionate 1 spray 08/02/22 09:00 08/03/22 08:13 Fluticasone Propionate 0.05% Na Spr 16 Gm Btl (*Bkc) NASAL 1 spray DAILY SHANAE Administration Sodium Chloride 1,000 mls @ 125 mls/hr 08/01/22 12:20 08/03/22 08:14 Normal Saline Iv IV CONT 125 mls/hr .Q8H SHANAE Administration Ondansetron HCl 4 mg 08/01/22 12:17 Ondansetron Inj 4 Mg/2 Ml Vial IV PUSH Q4H PRN Nausea Phenol 1 spray 08/01/22 12:55 Phenol/Sod Pheno [place] Lizama (*Bkc) MUCOUS MEM PRN PRN Sore Throat Radiology Results: ITS Impressions Abdomen Ultrasound 08/01/22 09:16 IMPRESSION: 1. Normal right upper quadrant ultrasound. Abdomen/Pelvis CT 08/01/22 10:16 IMPRESSION: 1. Multiple dilated loops of small bowel continuing to a segment of small bowel with circumferential wall thickening. Findings are consistent with partial small bowel obstruction, possibly due t
--- NOTE | 2022-08-03 10:43 | WPDGIPROGNO ---
Progress Note: A&P Assessment and Plan (1) SBO (small bowel obstruction): Code(s): K56.609 - Unspecified intestinal obstruction, unspecified as to partial versus complete obstruction Status: Acute Assessment and Plan: small bowel XR normal, no stricture patient is having BM tolerating liquid diet home soon (2) Nausea and vomiting: Code(s): R11.2 - Nausea with vomiting, unspecified Status: Acute Assessment and Plan: resolved (3) IBS (irritable bowel syndrome): Code(s): K58.9 - Irritable bowel syndrome without diarrhea Status: Acute (4) Abdominal pain: Code(s): R10.9 - Unspecified abdominal pain Status: Acute Subjective Date/time seen: 08/03/22 10:43 Interval history: tolerated liquid diet this morning but got bloated and distended, better now. She already had bowel movements and no more nausea. Feeling better Review of Systems Review of Systems: All systems reviewed & are unremarkable except as noted in HPI and below Exam Const: General: comfortable and no acute distress HENMT: General nose exam: Normal nares present Eyes: General: appearance normal, both eyes and all related structures Neck: Neck: no JVD Resp: Auscultation: clear to auscultation bilaterally Cardio: Rate: regular rate Rhythm: regular rhythm GI: GI Palp: Yes Soft to palpation and No Tenderness to palpation present (GI) Auscultation: normal bowel sounds Skin: General skin exam: normal color Neuro: General: gait normal Speech: normal speech Extrem: General: normal to inspection Psych: Mental Status: mental status grossly normal Objective Data Vital Signs Vital Signs: Vital Signs - 24 hr 08/02/22 14:00 08/02/22 20:00 08/02/22 21:57 Temperature 97.6 F 97.9 F Pulse Rate 68 58 L Respiratory Rate 20 16 Blood Pressure 131/68 120/67 Pulse Oximetry 97 98 Oxygen Delivery Room Air 08/03/22 05:55 08/03/22 08:14 Temperature 96.5 F L Pulse Rate 52 L Respiratory Rate 18 Blood Pressure 116/72 Pulse Oximetry 99 Oxygen Delivery Room Air Intake/Output Intake/Output: Intake & Output 07/31/22 08/01/22 08/02/22 08/03/22 23:59 23:59 23:59 23:59 Intake Total 2200 3960 2600 Output Total 200 800 Balance 1999 3160 2600 Meds/Results Medications: Active Medications Generic Name Dose Route Start Last Admin Trade Name Freq PRN Reason Stop Dose Admin Cyclosporine 1 drop 08/01/22 21:00 08/03/22 08:14 Cyclosporine 0.4 Ml Ophth Solution EACH EYE 1 drop Q12HR SHANAE Administration Diphenhydramine HCl 50 mg 08/02/22 10:50 08/02/22 11:13 Diphenhydramine Hcl Inj 50 Mg/Ml Vial IV PUSH 50 mg Q4H PRN Administration Itching Famotidine 20 mg 08/01/22 21:00 08/03/22 08:13 Famotidine 20 Mg/2 Ml Vial IV PUSH 20 mg Q12HR SHANAE Administration Fluticasone Propionate 1 spray 08/02/22 09:00 08/03/22 08:13 Fluticasone Propionate 0.05% Na Spr 16 Gm Btl (*Bkc) NASAL 1 spray DAILY SHANAE Administration Sodium Chloride 1,000 mls @ 125 mls/hr 08/01/22 12:20 08/03/22 08:14 Normal Saline Iv IV CONT 125 mls/hr .Q8H SHANAE Administration Ondansetron HCl 4 mg 08/01/22 12:17 Ondansetron Inj 4 Mg/2 Ml Vial IV PUSH Q4H PRN Nausea Phenol 1 spray 08/01/22 12:55 Phenol/Sod Pheno [place] Lizama (*Bkc) MUCOUS MEM PRN PRN Sore Throat Radiology Results: ITS Impressions Abdomen Ultrasound 08/01/22 09:16 IMPRESSION: 1. Normal right upper quadrant ultrasound. Abdomen/Pelvis CT 08/01/22 10:16 IMPRESSION: 1. Multiple dilated loops of small bowel continuing to a segment of small bowel with circumferential wall thickening. Findings are consistent with partial small bowel obstruction, possibly due to stricture from inflammatory bowel disease. Abdomen X-Ray 08/02/22 08:28 IMPRESSION: 1. Dilated loop of small bowel, consistent with adynamic ileus versus partial small bowel obst
--- NOTE | 2022-08-03 11:46 | PM.PNGS ---
Progress Note: A&P Assessment and Plan (1) SBO (small bowel obstruction): Code(s): K56.609 - Unspecified intestinal obstruction, unspecified as to partial versus complete obstruction Status: Acute Assessment and Plan: seems to be resolved with negative small-bowel series. Patient did have some bloating with full liquids. Will continue full liquids for now and see if she tolerates better. Pain is definitely better and in fact is gone. Continue to monitor. (2) Abnormal CT scan, gastrointestinal tract: Code(s): R93.3 - Abnormal findings on diagnostic imaging of other parts of digestive tract Status: Acute Assessment and Plan: Studies for inflammatory bowel disease have been sent. Dr. Hunter is following. Abnormal segment of small bowel noted on CT scan with wall thickening and some narrowing of the lumen thought to be the cause of the obstruction. Subjective Subjective Date/Time Seen: 08/03/22 11:46 Patient reports: feels better, pain is less, diarrhea ( After small-bowel follow-through yesterday) and afebrile Interval history: patient had negative small bowel series yesterday and extensive diarrhea following the study. She was tolerating clear liquids well last night. However, her full liquids for breakfast did cause some bloating and feelings of being very full. She did not eat very much. She feels okay now but had some problems with full liquids earlier this morning. No new complaints or problems. No headache. Did have some right groin crease pain but thinks that might have been from getting out of bed to go to the bathroom with the diarrhea she had. Review of Systems Review of Systems: All systems reviewed & are unremarkable except as noted in HPI and below ( HPI) Exam Const: General: cooperative, healthy appearing, no acute distress, alert and awake Nutritional Appearance: well nourished Orientation/consciousness: patient oriented x3 GI: Inspection: normal to inspection, non-distended and no scars GI Palp: Yes Soft to palpation, No Tenderness to palpation present (GI), No Guarding due to palpation present (GI), No Hernia present ( no inguinal or femoral hernia noted to palpation) and No Ascites present Objective Data Vital Signs Vital Signs: Vital Signs - 24 hr 08/02/22 14:00 08/02/22 20:00 08/02/22 21:57 Temperature 36.4 C 36.6 C Pulse Rate 68 58 L Respiratory Rate 20 16 Blood Pressure 131/68 120/67 Pulse Oximetry 97 98 Oxygen Delivery Room Air 08/03/22 05:55 08/03/22 08:14 Temperature 35.8 C L Pulse Rate 52 L Respiratory Rate 18 Blood Pressure 116/72 Pulse Oximetry 99 Oxygen Delivery Room Air Intake/Output Intake/Output: Intake & Output 07/31/22 08/01/22 08/02/22 08/03/22 23:59 23:59 23:59 23:59 Intake Total 2200 3960 2600 Output Total 200 800 Balance 2000 3160 2600 Meds/Results Medications: Active Medications Generic Name Dose Route Start Last Admin Trade Name Freq PRN Reason Stop Dose Admin Cyclosporine 1 drop 08/01/22 21:00 08/03/22 08:14 Cyclosporine 0.4 Ml Ophth Solution EACH EYE 1 drop Q12HR SHANAE Administration Diphenhydramine HCl 50 mg 08/02/22 10:50 08/02/22 11:13 Diphenhydramine Hcl Inj 50 Mg/Ml Vial IV PUSH 50 mg Q4H PRN Administration Itching Famotidine 20 mg 08/01/22 21:00 08/03/22 08:13 Famotidine 20 Mg/2 Ml Vial IV PUSH 20 mg Q12HR SHANAE Administration Fluticasone Propionate 1 spray 08/02/22 09:00 08/03/22 08:13 Fluticasone Propionate 0.05% Na Spr 16 Gm Btl (*Bkc) NASAL 1 spray DAILY SHANAE Administration Sodium Chloride 1,000 mls @ 125 mls/hr 08/01/22 12:20 08/03/22 08:14 Normal Saline Iv IV CONT 125 mls/hr .Q8H SHANAE Administration Ondansetron HCl 4 mg 08/01/22 12:17 Ondansetron Inj 4 Mg/2 Ml Vial IV PUSH Q4H PRN Nausea Phenol 1 spray 08/01/22 12:55 Phenol/Sod Pheno [place] Lizama (*Bkc) MUCOUS MEM PRN PRN Sore Th
[2022-08-03 14:33] VITALS: BP 120/73; PULSE 52; RESP 16; TEMP 37.3; O2SAT 99
[2022-08-03 21:30] VITALS: BP 136/77; PULSE 52; RESP 16; TEMP 36.9; O2SAT 98
[2022-08-04] MEDS: SODIUM CHLORIDE 0.9% IV 1,000 ML 125 ML IV CONT (04:03)
[2022-08-04 06:00] VITALS: BP 129/83; PULSE 57; RESP 16; TEMP 35.9; O2SAT 97
[2022-08-04] MEDS: FAMOTIDINE 20 MG/2 ML VIAL IV PUSH (08:11)
[2022-08-04] MEDS: cycloSPORINE 0.4 ML OPHTH SOLUTION 1 DROP EACH EYE (08:11)
[2022-08-04] MEDS: FLUTICASONE PROPIONATE 0.05% NA SPR 16 GM BTL (*BKC) 1 SPRAY NASAL (08:12)
--- NOTE | 2022-08-04 09:12 | PM.DS ---
DS: Admitting Diagnosis Discharge Date 08/04/22 Admitting Diagnosis (1) SBO (small bowel obstruction): ?Code(s): K56.609 - Unspecified intestinal obstruction, unspecified as to partial versus complete obstruction ?Status:?Acute (2) Acute migraine: ?Code(s): G43.909 - Migraine, unspecified, not intractable, without status migrainosus ?Status:?Acute (3) Hyperlipidemia: ?Code(s): E78.5 - Hyperlipidemia, unspecified ?Status:?Acute (4) IBS (irritable bowel syndrome): ?Code(s): K58.9 - Irritable bowel syndrome without diarrhea ?Status:?Acute (5) Chronic GERD: ?Code(s): K21.9 - Gastro-esophageal reflux disease without esophagitis ?Status:?Acute DS: Summary Hospital Course Reason for hospitalization: Chief Complaint: Abdominal pain Narrative: This is a 61-year-old female patient who has IBS mixed.? The patient stated that she started having right epigastric pain last night.? She does have a history of GERD.? The patient stated that she has not had a bowel movement in 2 days but felt that this was normal for her.? She did not try to take anything to resolve the issue.? The patient stated that after eating dinner last night she had this right upper quadrant pain and she thought that it was due to something she ate.? She ate a sonic burger and since his was greasy she thought that maybe it irritated her acid reflux.? Her urine appears to be contaminated but no UTI.? Abdominal ultrasound was performed normal right upper quadrant ultrasound.? CT of the abdomen shows multiple dilated loops of small bowel continuing to a segment of small bowel with circumferential wall thickening.? Findings are consistent with partial small-bowel obstruction, possibly due to stricture from inflammatory bowel disease.? Dr. Hunter has been consulted and has seen the patient.? Surgery has also been consulted.? The patient has an NG tube that is placed now and is in the stomach.? She was given IV Zofran, IV fluids, Protonix and a GI cocktail prior to her NG tube.? The patient was initially admitted to observation but changed to inpatient status on the date of service of 08/01/2022. Hospital Course: 08/01/22 -the patient has NG tube in place should -she is NPO. -analgesics as needed -surgery has been consulted -GI has been consulted. -she has a history of IBS mixed -obstructive series in the a.m.. -IV Tylenol. -may consider Imitrex. -patient gets monthly injection -patient is NPO and her rosuvastatin is on hold at this time. -GI has been consulted -IV Pepcid 08/02/22 still NGT and NPO gi cocktail passing stool w/o daily imodium and w SBS no pain all questions answered GI and Surg following 08/03/22 NGT out CLD advanced to GI soft cont current care anticipate clearance by consultants and dc home tomorrow 08/04/22 Patient is tolerating p.o. without any bloating, Pain, or nausea. she continues to have bowel movements although now better formed. 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 Studies for inflammatory bowel disease have been sent.? Dr. Hunter is following.? Abnormal segment of small bowel noted on CT scan with wall thickening and some narrowing of the lumen thought to be the cause of the obstruction. follow-up imaging small bowel XR normal, no stricture. she is discharged home in stable condition with indications of follow-up with both her PCP and GI No medication change made to discharge defer this to her established GI specialist Status at Discharge Functional status at discharge: independent ambulation Overall status at discharge: patient is back to baseline Time Spent with Patient Time attestation: Total time spent providing and/or coordinating discharge services: Exam Narrative: GEN: NAD, AAOx3, cooperative HEENT: NCAT, MMM, EOMI Neck: no JVD Lungs: no use of accessory muscles, symmetric chest rise Abd: soft nontender nondistended Ext: moves all, no cyanosis, no c
[2022-08-08 10:34] LABS: ANCA Screen Negative (Negative); Myeloperoxidase Ab <1.0 AI (<1.0); Proteinase-3 Ab <1.0 AI (<1.0); S cerevisiae Ab (IgA) 7.1 U (<=20.0); S cerevisiae Ab (IgG) 27.6 U (<=20.0)
== END 2022-08-04 10:45 | disposition home or self-care (01) | DRG 390 ==
LOC: ANHED 08:02 → ANH3MEDSUR 12:36
PROVIDERS: Internal Medicine Gastroenterology; Nurse Practitioner; Admitting Provider Internal Medicine; Emergency Provider Emergency Medicine; PCP Internal Medicine; Visit Provider Hospitalist
DX: K56.600 Partial intestinal obstruction, unspecified as to cause (principal); K58.2 Mixed irritable bowel syndrome; G43.909 Migraine, unspecified, not intractable, without status migrainosus; E78.5 Hyperlipidemia, unspecified; K21.9 Gastro-esophageal reflux disease without esophagitis; R93.3 Abnormal findings on diagnostic imaging of other parts of digestive tract; Z79.899 Other long term (current) drug therapy; Z98.49 Cataract extraction status, unspecified eye; Z90.710 Acquired absence of both cervix and uterus
CPT/HCPCS: 36415; 74019; 74177; 74250; 76705; 80053; 81001; 83605; 83615; 83690; 83735; 84443; 85025; 86036; 86671; 96361; 96374; 96375; 99285; A9270; C9113; G0378; J0131; J1200; J1885; J2270; J2405; J2765; J7030; Q9967

== ENCOUNTER 2022-08-07 12:16 | Outpatient (CLI) | payer OTHER, SELFPAY ==
--- NOTE | ~2022-08-07 | XR_ITS ---
EXAMINATION: XR abdomen obstructive series DATE: 08/07/2022 12:43 INDICATION: Unspecified intestinal obstruction TECHNIQUE: Upright and supine views of the abdomen were obtained. COMPARISON: 08/02/2022 FINDINGS: There is no free intraperitoneal gas or evidence of bowel obstruction. The bowel gas patter n is normal. A small amount of enteric contrast is seen in the distal colon from recent small bowel f ollow-through. Bilateral breast implants are noted. The visualized lung bases are clear. 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 IMPRESSION: 1. Nonobstructive bowel gas pattern. Reviewed, dictated and finalized at location B.
== END 2022-08-07 12:17 | disposition home or self-care (01) ==
PROVIDERS: PCP Internal Medicine; Visit Provider Internal Medicine Gastroenterology
DX: K56.609 Unspecified intestinal obstruction, unspecified as to partial versus complete obstruction (principal)
CPT/HCPCS: 74019

== ENCOUNTER 2022-09-06 05:54 | Outpatient (CLI) | payer OTHER, SELFPAY ==
--- NOTE | 2022-08-28 13:31 | PC.NURSE ---
chart reviewed, spoke with Dr. Hunter regarding possible bowel obstruction on CT scan and Abd. Xrays 08/01/22 and 08/02/2022 and questioned need for Patency capsule prior to Givens Capsule. Orders given to do Patency Capsule prior to Givens. Patient called and procedure and pre-op explained. Email sent with instructions as requested per patient.
--- NOTE | 2022-09-06 06:34 | SUR.PREOP ---
PillCam patency capsule LOT [id number] EXP 2023-07-29
--- NOTE | 2022-09-09 09:08 | PC.NURSE ---
Called and spoke to patient regarding KUB ordered for 09/07/2022 after patentcy capsule on 09/06/2022, pt states she passed intact patency capsule with bowel movement at 2130. She called Dr. Hunter and he told her she did not need to go for KUB and is okay to have Givens Capsule on 09/11/22.
== END 2022-09-06 06:36 | disposition home or self-care (01) ==
PROVIDERS: PCP Internal Medicine; Visit Provider Internal Medicine Gastroenterology
PROC: 0DJ07ZZ Inspection of Upper Intestinal Tract, Via Natural or Artificial Opening (ICD-10-PCS; CPT 91110; principal; 2022-09-06 07:00)
DX: Z01.818 Encounter for other preprocedural examination (principal)
CPT/HCPCS: 91110

== ENCOUNTER 2022-09-11 06:23 | Outpatient (CLI) | payer OTHER, SELFPAY ==
--- NOTE | 2022-09-11 07:07 | SUR.OPER ---
Patient brought to GI Lab. Instructions for patient undergoing Capsule Endoscopy reviewed with patient. Consent form signed. Sensor array applied to patient's abdomen and connected to recorded. Patient swallowed capsule with 2 cups of water infused with Simethicone. Patient instructed they may have clear liquids at 0845 this AM and eat or drink at 1045 this AM. Patient instructed to return to GI Lab at 1500 this afternoon for removal of recording device and to call [phone] or to return to the hospital if any nausea and vomiting or abdominal pain is experienced.
--- NOTE | 2022-09-11 14:53 | SUR.OPER ---
Patient returned to the GI Lab at 1505 for recorder box removal. Patient voiced no complaints. States they have understanding of instructions. Patient left ambulatory.
== END 2022-09-11 06:24 | disposition home or self-care (01) ==
PROVIDERS: PCP Internal Medicine; Visit Provider Internal Medicine Gastroenterology
PROC: 0DJ07ZZ Inspection of Upper Intestinal Tract, Via Natural or Artificial Opening (ICD-10-PCS; CPT 91110; principal; 2022-09-11 07:00)
DX: K50.90 Crohn's disease, unspecified, without complications (principal)
CPT/HCPCS: 91110

== ENCOUNTER → 2023-02-05 15:37 | Outpatient (CLI) | payer OTHER, SELFPAY ==
--- NOTE | ~2023-02-05 | CT_ITS ---
EXAMINATION: CT sinus wo con DATE: 02/05/2023 15:53 INDICATION: Acute sinusitis. TECHNIQUE: Computed tomography (CT) of the paranasal sinuses was performed without intravenous contra st. Iterative reconstruction technique was employed. The dose-length product was 268.51 mGy-cm. COMPARISON: Head CT 03/10/2006 FINDINGS: The frontal sinuses are clear. There is mild mucosal thickening in the bilateral ethmoid si nuses. The sphenoid sinuses are clear. The mastoid sinuses are clear. There are changes of bilateral uncinectomies and ethmoidectomies. There is ashish bullosa involving the left middle turbinate. Right middle turbinate is paradoxical. There is leftward deviation of the nasal septum anteriorly and righ tward deviation of the nasal septum posteriorly. The ostiomeatal units are widely patent. There are l ikely changes of ocular lens replacement surgeries. IMPRESSION: 1. Mild mucosal thickening in the ethmoid sinuses. 2. Bilateral uncinectomies and ethmoidectomies. Reviewed, dictated and finalized at location A.
== END ==
PROVIDERS: PCP Otolaryngology; Visit Provider Otolaryngology
DX: J01.90 Acute sinusitis, unspecified (principal)
CPT/HCPCS: 70486

== ENCOUNTER 2023-09-10 06:11 | Emergency (ER) | payer OTHER, SELFPAY ==
[2023-09-10 06:14] VITALS: BP 161/90; PULSE 68; RESP 18; TEMP 37.2; O2SAT 94
--- NOTE | 2023-09-10 07:21 | ED.ANIMALBIT ---
HPI - Animal Bite General Chief Complaint: Animal Bite Stated Complaint: dog bite Time Seen by Provider: 09/10/23 06:59 History of Present Illness HPI narrative: 63-year-old female present to the emergency department for evaluation of dog bite to the face. Patient was giving her dog a kiss when she was bit on the face. Patient does have puncture wounds to the right nare with no significant laceration and patient does have a laceration to the right upper lip. Patient's tetanus was not up-to-date. Related Data Home Medications Medication Instructions Recorded Confirmed cyclosporine 0.05 % eye drops in a 1 drp ophthalmic (eye) BID 11/22/21 08/27/22 dropperette (Restasis) estradiol 1 mg tablet 1 mg PO DAILY 11/22/21 08/27/22 fluticasone propionate 50 50 mcg intranasal DAILY 11/22/21 08/27/22 mcg/actuation nasal spray,suspension phenylephrine HCl 10 mg tablet 10 mg PO DAILY 11/22/21 08/27/22 (Sudafed PE) rosuvastatin 10 mg tablet 10 mg PO DAILY 11/22/21 08/27/22 Allergies Allergy/AdvReac Type Severity Reaction Status Date / Time sulfamethizole Allergy Unknown Unknown Verified 02/03/23 15:26 sulfanilamide Allergy Unknown Unknown Verified 02/03/23 15:26 trimethoprim Allergy Unknown Unknown Verified 02/03/23 15:26 erythromycin base AdvReac Severe N/V Verified 02/03/23 15:26 sulfamethoxazole AdvReac Severe N/V Verified 02/03/23 15:26 Review of Systems Review of Systems: All systems reviewed & are unremarkable except as noted in HPI and below PMFSH Past Medical History Medical History Abdominal pain Acute migraine Chronic GERD Dry eye syndrome Ganglion cyst Hyperlipidemia Hyperlipidemia IBS (irritable bowel syndrome) IBS (irritable bowel syndrome) mixed Jaw fracture Jaw was wired shut when she was younger. Surgical History Surgical History H/O hand surgery tendon transfer H/O sinus surgery History of cataract extraction History of hysterectomy Family History Family History Father Parkinsons disease Mother Heart disease Takotsubo cardiomyopathy Social History Social History Social History: The patient is and lives with her who is the durable power immigration attorney for healthcare. 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 The patient is lifelong nonsmoker does not use any alcohol marijuana or illicit drugs. Code status full code Smoking status: Never smoker Alcohol intake: current Alcohol use details: 1-2 drinks per month Substance use: current Substance use type: does not use Lack of Transportation: No Lack of Food: Never True Current Housing: I Have Housing Concerned About Future Housing: No Difficulty Paying Gas/Electric Bills: No Difficulty Paying for Meds: No Currently Unemployed: No Education: Associate Degree Difficulty w/ Childcare or Family Care: No Living arrangements: with family Spiritual care concerns: No Exam Narrative: APPEARANCE: Well appearing, no pain, no distress, well-nourished. HEAD: normocephalic, facial injuries. EYES: PERRLA/EOMI, conjunctivae clear. NOSE: Normal no drainage EARS:TMS clear with good light reflex. THROAT: Pharynx clear, no exudate. NECK: Supple. No adenopathy, no masses. RESPIRATORY: Airway patent, respirations nonlabored. Clear to auscultation bilaterally, no rales, rhonchi, wheezing. CARDIOVASCULAR: Regular rate and rhythm without murmurs rubs or gallops. ABDOMINAL: Soft, nontender, nondistended, normal bowel sounds MUSCULOSKELETAL: Moves all extremities. Strength/ROM intact, No edema, No calf tenderness. NEURO: Alert. Cranial nerves II through XII intact. Good gait. Good coordination SKIN: Puncture wound to right nostril and laceration to right upper lip Course Course Emergency Course
[2023-09-10] MEDS: AMOXICILLIN/CLAVULANATE K 875-125 MG TAB 1 TABLET PO (07:37)
[2023-09-10] MEDS: TETANUS,DIPHTHERIA,AC PERTUSSIS ADULT (0.5 ML) BOOSTRIX IM (07:37)
== END 2023-09-10 09:05 | disposition home or self-care (01) ==
PROVIDERS: Emergency Provider Emergency Medicine; PCP Otolaryngology
DX: S01.85XA Open bite of other part of head, initial encounter (principal); Z23 Encounter for immunization; W54.0XXA Bitten by dog, initial encounter
CPT/HCPCS: 12013; 90471; 90715; 99283; A9270

== ENCOUNTER 2024-06-07 18:08 | Emergency (ER) | payer OTHER, SELFPAY ==
--- NOTE | ~2024-06-07 | CT_ITS ---
EXAMINATION: CT abdomen pelvis w con DATE: 06/07/2024 20:43 INDICATION: Abdominal pain TECHNIQUE: Computed tomography (CT) of the abdomen and pelvis was performed with 100 mL Omnipaque-350 intravenous contrast. Automated exposure control and iterative reconstruction technique were employe d. The dose-length product was 231.25 mGy-cm. COMPARISON: 08/01/2022. FINDINGS: Lower thorax: Calcified breast implants. Liver: Simple left lobe cyst. Scattered subcentimeter hypodensities too small to characterize but lik vivien represent cysts or hemangiomas. Biliary/Gallbladder: Gallbladder is normal. No bile duct dilation. Pancreas: No mass or duct dilation. Spleen: Normal. Adrenals:No mass. Kidneys: No suspicious mass, obstructing stone, or hydronephrosis. GI tract: Moderate distal esophageal and antral wall edema. No small or large bowel dilation. Normal appendix. Mesentery/Peritoneum: No ascites, mass, or free air. Retroperitoneum: No mass. Pelvis: Normal urinary bladder. Absent uterus.. Soft Tissues: Soft tissues and body wall unremarkable. Bones: No acute osseous finding. Grade 1 anterolisthesis at L5-S1 secondary to bilateral pars defect s. IMPRESSION: Moderate esophagitis and antral gastritis. Otherwise, no acute abdominopelvic process detected. Reviewed, dictated and finalized at location K. IMPRESSION: Moderate esophagitis and antral gastritis. Otherwise, no acute abdominopelvic p rocess detected.
[2024-06-07 18:10] VITALS: BP 149/83; PULSE 85; RESP 18; TEMP 36.6; O2SAT 98
--- NOTE | 2024-06-07 18:11 | ED.ABDPAIN ---
HPI - Abdominal Pain General Chief Complaint: Abdominal Pain <Pat Stephens PA-C - Last Filed: 06/08/24 17:27> Stated Complaint: nausea, abd pain <Pat Stephens PA-C - Last Filed: 06/08/24 17:27> Time Seen by Provider: 06/07/24 18:11 <Pat Stephens PA-C - Last Filed: 06/08/24 17:27> Focused HPI: This is a 63-year-old female that presents to the emergency department for mid abdominal pain. Ongoing since yesterday. Associated nausea. Reports history of small-bowel obstruction, her pain feels similar. Reports a small bowel movement yesterday. Denies vomiting. GENERAL: Uncomfortable, well-nourished, in no acute distress. HEAD: Normocephalic, atraumatic. CHEST: Clear to auscultation. ?No respiratory distress. HEART: Regular rate and rhythm.? NEURO: ?Alert and oriented x3. Patient screened in triage and initial orders placed.? ?Additional care and disposition to be based upon?diagnostic testing and treatment. <Pat Stephens PA-C - Last Filed: 06/08/24 17:27> Source: patient <Pat Stephens PA-C - Last Filed: 06/08/24 17:27> Mode of arrival: ambulatory <Pat Stephens PA-C - Last Filed: 06/08/24 17:27> Limitations: no limitations <Pat Stephens PA-C - Last Filed: 06/08/24 17:27> History of Present Illness HPI narrative: Patient is a 61-year-old female presents emergency department chief complaint of abdominal pain. Patient reports abdominal pain starting yesterday reports he has prior history of small-bowel obstruction reports he is concerned that she may have developed another 1. Patient reports nausea reports she has had decreased bowel movements in her abdomen feels bloated. <Brenden Gomes MD - Last Filed: 06/07/24 22:50> Related Data Home Medications: Home Medications Medication Instructions Recorded Confirmed cyclosporine 0.05 % eye drops in a 1 drp ophthalmic (eye) BID 11/22/21 12/04/23 dropperette (Restasis) estradiol 1 mg tablet 1 mg PO DAILY 11/22/21 12/04/23 fluticasone propionate 50 50 mcg intranasal DAILY 11/22/21 12/04/23 mcg/actuation nasal spray,suspension phenylephrine HCl 10 mg tablet 10 mg PO DAILY 11/22/21 12/04/23 (Sudafed PE) rosuvastatin 10 mg tablet 10 mg PO DAILY 11/22/21 12/04/23 loperamide 2 mg capsule (Imodium 1 mg PO DAILY 12/04/23 12/04/23 A-D) mecobalamin (vitamin B12) 500 mcg mcg PO 04/26/24 chewable tablet <Pat Stephens PA-C - Last Filed: 06/08/24 17:27> Allergies/Adverse Reactions: Allergies Allergy/AdvReac Type Severity Reaction Status Date / Time sulfamethizole Allergy Unknown Unknown Verified 06/07/24 18:13 sulfanilamide Allergy Unknown Unknown Verified 06/07/24 18:13 trimethoprim Allergy Unknown Unknown Verified 06/07/24 18:13 erythromycin base AdvReac Severe N/V Verified 06/07/24 18:13 sulfamethoxazole AdvReac Severe N/V Verified 06/07/24 18:13 <Pat Stephens PA-C - Last Filed: 06/08/24 17:27> Review of Systems Review of Systems: A 10 system review of systems was completed on the patient and is negative except for what is stated in the HPI. Nursing and ancillary documentation was reviewed. <Brenden Gomes MD - Last Filed: 06/07/24 22:50> [facility] Past Medical History Medical History: Medical History Abdominal pain Acute migraine Chronic GERD Dry eye syndrome Ganglion cyst Hyperlipidemia Hyperlipidemia IBS (irritable bowel syndrome) IBS (irritable bowel syndrome) mixed Jaw fracture Jaw was wired shut when she was younger. <Pat Stephens PA-C - Last Filed: 06/08/24 17:27> Surgical History Surgical History: Surgical History H/O hand surgery tendon transfer H/O sinus surgery History of cataract extraction History of hysterectomy <Pat Stephens PA-C - Last Filed: 06/08/24 17:27> Family Histo
[2024-06-07 19:51] LABS: Basophils Absolute Auto 0.1 K/mm3 (0.0-0.1); Basophils Percent Auto 0.5 % (0.2-1.2); Eosinophils Absolute Auto 0.1 K/mm3 (0-0.3); Eosinophils Percent Auto 1.3 % (0-4.4); Hematocrit 45.9 % (37.0-47.0); Hemoglobin 14.6 g/dL (12.0-15.0); Immature Granulocyte Absolute 0.02 K/mm3 (0.00-0.031); Immature Granulocyte Percent A 0.2 % (0-0.5); Lymphocytes Absolute Auto 0.36 K/mm3 (0.9-3.2); Lymphocytes Percent Auto 3.9 % (18.3-44.2); Mean Corpuscular HGB Conc 31.8 g/dl (32-36); Mean Corpuscular Hemoglobin 30.4 pg (26-34); Mean Corpuscular Volume 95.6 fl (80-100); Mean Platelet Volume 9.5 fl (7.4-10.4); Monocytes Absolute Auto 0.9 K/mm3 (0.1-0.6); Monocytes Percent Auto 9.5 % (2.6-8.5); Neutrophils Absolute Auto 7.9 K/mm3 (1.3-6.7); Neutrophils Percent Auto 84.6 % (45.5-73.1); Platelet Count Result 275 k/mm3 (150-375); Red Cell Distribution Width 13.2 % (11.5-14.5); White Blood Count 9.4 K/mm3 (4.5-10.0)
[2024-06-07 19:53] LABS: Appearance Urine Clear (Clear); Bilirubin Urine Negative (Negative); Blood Urine Negative (Negative); Color Urine Yellow (Yellow); Glucose Urine UA Negative (Negative); Ketones Urine Negative (Negative); Leukocyte Esterase Ur Negative LEU/UL (Negative); Nitrate Urine Negative (Negative); Protein Urine Negative (Negative); Urobilinogen Urine 0.2 mg/dL (<2.0); pH Urine 5.5 (5.0-9.0)
[2024-06-07 20:04] LABS: Add Urine Microscopic? NO; Alanine Aminotransferase 27 U/L (6-35); Albumin Level 4.8 g/dL (3.5-5.1); Alkaline Phosphatase 58 U/L (38-126); Anion Gap 11 mmol/L (4-12); Aspartate Amino Transferase 34 U/L (14-36); Bilirubin,Total 0.7 mg/dL (0.2-1.3); Blood Urea Nitrogen 20 mg/dL (7-17); Calcium 9.2 mg/dL (8.4-10.2); Carbon Dioxide 26 mmol/L (22-30); Chloride 105 mmol/L (98-107); Estimated CRCL calculation 43 ml/min; Estimated Glomerular Filt Rate 56; Glucose 125 mg/dL (65-110); Lipase 354 U/L (23-300); Potassium 4.1 mmol/L (3.4-5.0); Sodium 142 mmol/L (137-145)
[2024-06-07] MEDS: ONDANSETRON INJ 4 MG/2 ML VIAL IV PUSH (21:17)
[2024-06-07] MEDS: SODIUM CHLORIDE 0.9% IV 1,000 ML 999 ML IV CONT (21:17)
[2024-06-07] MEDS: DICYCLOMINE HCL INJ 20 MG/2 ML VIAL IM (21:17)
[2024-06-07] MEDS: PANTOPRAZOLE SODIUM IV 40 MG VIAL IV PUSH (21:17)
== END 2024-06-07 23:00 | disposition home or self-care (01) ==
PROVIDERS: Physician Assistant; Emergency Provider Emergency Medicine; PCP Internal Medicine
DX: R10.9 Unspecified abdominal pain (principal); E78.5 Hyperlipidemia, unspecified; K21.9 Gastro-esophageal reflux disease without esophagitis; H04.129 Dry eye syndrome of unspecified lacrimal gland; K58.9 Irritable bowel syndrome, unspecified; Z98.49 Cataract extraction status, unspecified eye; Z90.710 Acquired absence of both cervix and uterus; K20.90 Esophagitis, unspecified without bleeding; K29.70 Gastritis, unspecified, without bleeding
CPT/HCPCS: 36415; 74177; 80053; 81003; 83690; 85025; 96361; 96372; 96374; 96375; 99284; J0500; J2405; J2470; J7030; Q9967